=== PATIENT | female | born 1975 | race Caucasian/White ===

== ENCOUNTER 2021-07-05 15:38 | Emergency (ER) | payer SELFPAY ==
[2021-07-05 15:59] VITALS: BP 121/87; PULSE 97; TEMP 97.9; BMI 41.1
[2021-07-05] MEDS ORDERED: DIPHTH,PERTUSS(ACELL),TET 0.5 ML DISP.SYRIN IM ONE ×2 (16:27→17:00)
== END 2021-07-05 17:12 | disposition home or self-care (01) ==
LOC: JERFT 15:38
PROC: 3E0234Z Introduction of Serum, Toxoid and Vaccine into Muscle, Percutaneous Approach (ICD-10-PCS; principal; 2021-07-05)
DX: S61.011A Laceration without foreign body of right thumb without damage to nail, initial encounter (principal); W26.8XXA Contact with other sharp object(s), not elsewhere classified, initial encounter
CPT/HCPCS: 90715; 99284-25